=== PATIENT | male | born 1970 | race Caucasian/White ===

== ENCOUNTER 2021-06-02 18:34 | Emergency (ER) | payer BC ==
[~2021-06-02] VITALS: Ht 180.3 cm; Wt 134.1 kg
[2021-06-02 18:41] VITALS: TEMP 97.2
[2021-06-02 20:44] VITALS: BP 132/70; PULSE 78
== END 2021-06-02 20:44 | disposition home or self-care (01) ==
LOC: COL.ER 18:34
DX: S01.81XA Laceration without foreign body of other part of head, initial encounter (principal); J45.909 Unspecified asthma, uncomplicated; Z23 Encounter for immunization; W22.8XXA Striking against or struck by other objects, initial encounter

== ENCOUNTER → 2021-06-09 | Outpatient (CLI) | payer BC ==
[2021-06-09 21:05] VITALS: BP 137/82; PULSE 82; TEMP 98.1
== END ==
LOC: COL.ER 20:20
DX: Z48.02 Encounter for removal of sutures (principal)